=== PATIENT | male | born 1995 | race Hispanic/Latino ===

== ENCOUNTER 2021-01-15 11:05 | Emergency (ER) | payer OTHER ==
[2021-01-15 11:05] VITALS: BP_SYST 133; BP_SYST 161; BP_DIAS 80; BP_DIAS 99
[2021-01-15] MEDS ORDERED: SOLU-MEDROL IV STA (11:37)
[2021-01-15] MEDS ORDERED: BENADRYL IV STA (11:37)
[2021-01-15] MEDS ORDERED: PEPCID IV STA (11:37)
[2021-01-15] MEDS ORDERED: EPINEPHrine SQ STA (11:37)
[2021-01-15] MEDS ORDERED: ZOFRAN ONE ×2 (11:43→18:45)
[2021-01-15 11:44] VITALS: BP 161/106
[2021-01-15] MEDS ORDERED: LACTATED RINGERS 1,000 ML ONE (11:46)
[2021-01-15] MEDS ORDERED: LACTATED RINGERS 1,000 ML IV STA (12:13)
--- NOTE | 2021-01-15 12:19 | ER.PDOC ---
General Chief Complaint: Skin Rash/Abscess Stated Complaint: BEE STING Time seen by MD: 11:00 Source: patient Exam Limitations: no limitations History of Present Illness Initial Comments Bee sting prior to coming to the ED. Patient is having rash and difficulty breathing. Timing/Duration: 1 hour Severity: moderate Location: generalized Quality: itchy Identified Cause: yes Exposure: bee/wasp sting Allergies: Coded Allergies: No Known Allergies (Unverified , 01/15/21) Past Medical History Medical History: no pertinent history Surgical History: no surgical history Family History Significant Family History: no pertinent family hx Social History Smoking: greater than 1 pack/day Alcohol Use: none Drug Use: none Constitutional: no symptoms reported EENTM: no symptoms reported Respiratory: see HPI Cardiovascular: no symptoms reported Gastrointestinal: vomiting Skin: see HPI All Other Systems: Reviewed and Negative Physical Exam General Appearance: alert, no distress Skin: warm/dry, skin rash Location: generalized Character: macular, urticarial Extremities: non-tender, nml ROM, no edema Neck: trachea midline, no swelling Respiratory: no resp. distress, breath sounds nml CVS: reg. rate & rhythm, heart sounds nml Abdomen: non-tender, no organomegaly NEURO/PSYCH: oriented x 3, CN's nml as tested, motor nml, sensation nml, mood/affect nml Results/Orders Results/Orders Orders - FABI MILES MD Epinephrine (Epinephrine) (01/15/21 11:37) Methylprednisolone Sod Succ (Solu-Medrol (01/15/21 11:37) Diphenhydramine Hcl (Benadryl) (01/15/21 11:37) Famotidine/Pf (Pepcid) (01/15/21 11:37) Ringer's Solution,Lactated (Lactated Rin (01/15/21 12:13) Vital Signs Date Time Temp Pulse Resp B/P (MAP) Pulse Ox O2 Delivery O2 Flow Rate FiO2 01/15/21 11:44 98.7 134 18 161/106 (124) 96 Room Air 01/15/21 11:05 98.8 114 18 91 01/15/21 11:05 98.7 115 18 161/99 (119) 91 Room Air 01/15/21 11:05 98.7 115 18 Administered Medications Medications (Trade) Dose Ordered Sig/[place] Route PRN Reason Start Time Stop Time Status Last Admin Dose Admin Diphenhydramine HCl (Benadryl) 50 mg STAT STAT IV 01/15/21 11:37 01/15/21 11:40 DC 01/15/21 11:00 50 MG Epinephrine HCl (EPINEPHrine) 0.3 mg STAT STAT SQ 01/15/21 11:37 01/15/21 11:40 DC 01/15/21 11:00 0.3 MG Famotidine (Pepcid) 20 mg STAT STAT IV 01/15/21 11:37 01/15/21 11:40 DC 01/15/21 11:00 20 MG Methylprednisolone Sodium Succinate (Solu-Medrol) 125 mg STAT STAT IV 01/15/21 11:37 01/15/21 11:40 DC 01/15/21 11:00 125 MG Progress Progress Patient is feeling better and his symptom of difficulty breathing has resolved. Rash is clearing. He vomited a few times here and was given Zofran. He also had a liter of lactated Ringer's. Overall he feels better to go home. ER DEPART Departure Time of Disposition: 12:16 Disposition: 01 HOME / SELF CARE / HOMELESS Impression: Primary Impression: Bee sting-induced anaphylaxis Additional Impressions: Acute allergic reaction Vomiting Condition: Improved Referrals: PCP,UNKNOWN (PCP) PRIMARY CARE PROVIDER Additional Instructions: Benadryl Pepcid prednisone EpiPen Follow-up with your PCP in 2 to 3 days Return to ED if worsening symptoms or concerns Duration or Time Spent with Pa: 20 min Problem Qualifiers Primary Impression: Bee sting-induced anaphylaxis Encounter type: initial encounter Injury intent: accidental or unintentional Qualified Codes: T63.441A - Toxic effect of venom of bees, accidental (unintentional), initial encounter Additional Impressions: Acute allergic reaction Encounter type: initial encounter Qualified Codes: T78.40XA - Allergy, unspecified, initial encounter Vomiting Vomiting type: unspecified Vomiting Intractability: non-intractable Nausea presence: with nausea Qualified Codes: R11.2 - Nausea with vomiting, unspecified FABI MILES MD Jan 15, 2021 12:19
[2021-01-15 12:34] VITALS: BP 156/99
[2021-01-15] MEDS ORDERED: BENADRYL ONE (18:43)
[2021-01-15] MEDS ORDERED: PEPCID IV ONE (18:44)
[2021-01-15] MEDS ORDERED: EPINEPHrine ONE (18:44)
[2021-01-15] MEDS ORDERED: SOLU-MEDROL ONE (18:45)
== END 2021-01-15 13:29 | disposition home or self-care (01) ==
LOC: ER 11:05
DX: T63.441A Toxic effect of venom of bees, accidental (unintentional), initial encounter (principal); Z79.52 Long term (current) use of systemic steroids; Y92.89 Other specified places as the place of occurrence of the external cause
CPT/HCPCS: 96372; 96374; 96375; 99284; J0171; J1200; J2405 ×2; J2930; J3490; J7120